=== PATIENT | female | born 1950 | race Caucasian/White ===

== ENCOUNTER 2018-03-10 22:27 | Emergency (ER) | payer MEDICARE, OTHER ==
[~2018-03-10] VITALS: Ht 160 cm; Wt 65.8 kg
[2018-03-10] MEDS ORDERED: PHEN100T82 PO (23:11)
[2018-03-10] MEDS ORDERED: CIPR500T PO (23:11)
[2018-03-10 23:15] LABS: CLARITY,URINE HAZY; COLOR,URINE PINK
[2018-03-10 23:16] LABS: BACTERIA,URINE 0 /HPF (0-FEW); BILIRUBIN,URINE NEG (NEG); GLUCOSE,URINE NEG (NEG); NITRITE,URINE NEG (NEG); SQUAMOUS EPITHELIAL CELL,UR OCC /LPF; UROBILINOGEN,URINE 0.2 mg/dL (0.2 mg/dL); WBC,URINE >40 /HPF (0-4)
[2018-03-10 23:20] VITALS: BP 142/78
[2018-03-10] MEDS ORDERED: PHENAZOPYRIDINE 100 MG TABLET. PO ONE (23:30)
[2018-03-10] MEDS ORDERED: CIPROFLOXACIN HCL 500 MG TABLET PO ONE (23:30)
--- NOTE | 2018-03-10 23:45 | ED.ADGEN ---
Past History Past Medical History: Hypertension, Hypothyroid, UTI Past Surgical History: No Surgical History Alcohol Use: Occasionally Drug Use: None Adult General HPI HPI Patient is a 67 year old female who presents with UTI. Patient is currently traveling. She is returning home to [place]. She presents to the ER this evening complaining of urinary tract infection symptoms. She endorses a prior history of UTIs. She complains of some urinary frequency and dysuria. She also noticed a pink color to her urine earlier today. She states all of these symptoms are indicative of an early urinary tract infection. She has been treated in the past with Cipro and Pyridium. She has not had a fever. She denies flank pain. She has no nausea or vomiting. She denies abdominal pain. Review of Systems Review of Systems Constitutional: Denies fever or chills Cardiovascular: No additional information not addressed in HPI [] GI: Denies abdominal pain, nausea, vomiting,or diarrhea : as documented above Musculoskeletal: Denies back pain or joint pain Integument: Denies rash or skin lesions All other systems were reviewed and found to be within normal limits, except as documented in this note. Current Medications Current Medications Current Medications Medications (Trade) Dose Ordered Sig/Bernardino Start Time Stop Time Status Last Admin Dose Admin Ciprofloxacin (Cipro) 500 mg 1X ONCE 03/10/18 23:30 03/10/18 23:30 DC 03/10/18 23:24 500 MG Phenazopyridine HCl (Pyridium) 100 mg 1X ONCE 03/10/18 23:30 03/10/18 23:30 DC 03/10/18 23:24 100 MG Allergies Allergies Allergies Coded Allergies Type Severity Reaction Last Updated Verified No Known Drug Allergies 03/10/18 No Physical Exam Physical Exam Constitutional: Well developed, well nourished, no acute distress, non-toxic appearance HENT: Normocephalic, atraumatic, bilateral external ears normal, oropharynx moist Neck: Normal range of motion Cardiovascular: Distal perfusion is normal Lungs & Thorax: No increased work of breathing Abdomen: Bowel sounds normal, soft, no tenderness Skin: Warm, dry, no erythema, no rash. Back: No tenderness, no CVA tenderness. Neurologic: Alert and oriented X 3 Psychologic: Affect normal Current Patient Data Vital Signs Vital Signs Date Time Temp Pulse Resp B/P (MAP) Pulse Ox O2 Delivery O2 Flow Rate FiO2 03/10/18 23:20 80 16 142/78 (99) 99 Room Air 03/10/18 22:30 97.8 Lab Results Laboratory Tests Test 03/10/18 22:36 Urine Collection Type Unknown Urine Color [place] Urine Clarity Hazy Urine pH 7.0 Urine Specific [place] <=1.005 Urine Protein Trace (NEG-TRACE) Urine Glucose (UA) Neg mg/dL (NEG) Urine Ketones (Stick) Neg mg/dL (NEG) Urine Blood Large (NEG) Urine Nitrite Neg (NEG) Urine Bilirubin Neg (NEG) Urine Urobilinogen Dipstick 0.2 mg/dL (0.2 mg/dL) Urine Leukocyte Esterase Small (NEG) Urine RBC 6-10 /HPF (0-2) Urine WBC >40 /HPF (0-4) Urine Squamous Epithelial Cells Occ /LPF Urine Bacteria 0 /HPF (0-FEW) EKG EKG [] Radiology/Procedures Radiology/Procedures [] Course & Med Decision Making Course & Med Decision Making Pertinent Labs and Imaging studies reviewed. (See chart for details) Patient is seen and examined in the ER. She is non-toxic. She has no flank pain. She has symptoms which she describes to be exactly consistent with prior urinary tract infections. Urinalysis does reveal hematuria and pyuria. Patient will be treated empirically with ciprofloxacin and Pyridium. The first dose of these medications is provided in the emergency department. She is prescribed the same for home use. She is encouraged to follow-up with her primary doctor for any new symptoms or if her current symptoms are not improving. Patient is agreeable to the plan of care and all of her questions are answered prior to discharge. Final Impression Final Impression Urinary Tract Infection Piedad Disclaimer Dragon Disclaimer This electronic medical record was generated, in whole or in part, using a voice recognition dictation system. SABI HOBBS DO March 10, 2018 23:45
== END 2018-03-10 23:25 | disposition home or self-care (01) ==
LOC: ER 22:27
DX: N39.0 Urinary tract infection, site not specified (principal); I10 Essential (primary) hypertension; E03.9 Hypothyroidism, unspecified; Z87.440 Personal history of urinary (tract) infections
CPT/HCPCS: 81001; 99283